=== PATIENT | male | born 1985 | race Caucasian/White ===

== ENCOUNTER 2019-11-11 15:36 | Outpatient (CLI) | payer OTHER, SELFPAY ==
--- NOTE | ~2019-11-11 | XR_ITS ---
EXAMINATION: XR chest 2V DATE: 11/11/2019 16:13 INDICATION: Lethargy. Fatigue. TECHNIQUE: Frontal and lateral views of the chest were obtained. COMPARISON: None. FINDINGS: Calcified bilateral lung nodules and calcified hilar and mediastinal lymph nodes are consis tent with old granulomatous disease. No pleural effusion or pneumothorax. The heart size is normal. IMPRESSION: 1. No acute cardiopulmonary disease. Reviewed, dictated and finalized at location A. [employer]
[2019-11-11 15:53] LABS: Add Urine Microscopic? NO; Appearance Urine Clear (Clear); Basophils Absolute Auto 0.04 K/mm3 (0.00-0.10); Basophils Percent Auto 0.4 % (0.0-1.0); Bilirubin Urine Negative (Negative); Blood Urine Negative (Negative); Color Urine Yellow (Yellow); Eosinophils Absolute Auto 0.14 K/mm3 (0.02-0.50); Eosinophils Percent Auto 1.3 % (1.0-6.0); Glucose Urine UA Negative (Negative); Hemoglobin 15.6 g/dL (14.0-18.0); Immature Granulocyte Absolute 0.04 K/mm3 (0.00-0.00); Immature Granulocyte Percent A 0.4 % (0.0-0.0); Ketones Urine Negative (Negative); Leukocyte Esterase Ur Negative (Negative); Lymphocytes Absolute Auto 2.67 K/mm3 (1.10-4.50); Mean Corpuscular HGB Conc 33.9 g/dL (32.0-36.0); Mean Corpuscular Hemoglobin 30.5 pg (27.0-31.0); Mean Corpuscular Volume 89.8 fL (78.0-102.0); Mean Platelet Volume 10.2 fl (8.7-11.0); Monocytes Absolute Auto 0.78 K/mm3 (0.10-0.90); Monocytes Percent Auto 7.3 % (2.0-11.0); Neutrophils Percent Auto 65.6 % (50.0-70.0); Nitrate Urine Negative (Negative); Platelet Count Result 225 K/mm3 (150-420); Protein Urine Negative (Negative); Red Blood Count 5.12 M/mm3 (4.70-6.10); Specific Grav Ur 1.025 (1.010-1.020); Urobilinogen Urine 0.2 mg/dL (0.2-1.0); White Blood Count 10.7 K/mm3 (4.8-10.8); pH Urine 5.5 (5.0-8.0)
[2019-11-11 17:35] LABS: Alanine Aminotransferase 32 U/L (16-63); Albumin Level 4.2 g/dL (3.4-5.0); Alkaline Phosphatase 68 U/L (46-116); Anion Gap 15.4 mmol/L (7-16); Aspartate Amino Transferase 19 U/L (15-37); Bilirubin,Total 0.2 mg/dL (0.00-1.00); Blood Urea Nitrogen 12 mg/dL (7-18); Calcium 8.8 mg/dL (8.5-10.1); Carbon Dioxide 27 mmol/L (21-32); Chloride 106 mmol/L (98-108); Cholesterol 166 mg/dL (0-200); Estimated Glomerular Filt Rate > 60; Free T3 3.38 pg/mL (2.18-3.98); Free T4 Free Thyroxine 0.89 ng/dL (0.76-1.46); Glucose 85 mg/dL (70-99); HDL Direct 36 mg/dL (40-60); LDL Cholesterol Calculated 66 mg/dL (<130); Osmolality Calculated 296 mOsm/kg (285-295); Potassium 4.4 mmol/L (3.5-5.1); Sodium 144 mmol/L (136-145); Total Protein 7.4 g/dL (6.4-8.2); Triglycerides 321 mg/dL (0-150)
[2019-11-11 18:30] LABS: CRP < 0.2 mg/dL (0.0-0.9)
[2019-11-15 04:02] LABS: Thyroglobulin 7.9 ng/mL (2.8-40.9); Thyroglobulin Antibodies <1 IU/mL (<=1); Thyroid Peroxidase Antibodies <1 IU/mL (<9)
== END 2019-11-11 15:37 | disposition home or self-care (01) ==
LOC: CHSLAB 15:41
PROVIDERS: PCP Internal Medicine; Visit Provider Internal Medicine
DX: Z00.00 Encounter for general adult medical examination without abnormal findings (principal); R53.83 Other fatigue
CPT/HCPCS: 36415; 71046; 80053; 80061; 81003; 84432; 84439; 84443; 84481; 85025; 86140; 86376; 86800

== ENCOUNTER 2021-02-12 16:31 | Emergency (ER) | payer OTHER, SELFPAY ==
--- NOTE | ~2021-02-12 | XR_ITS ---
EXAMINATION: XR lumbar spine 2-3V EXAM DATE: 02/12/2021 17:47 INDICATION: Low back pain, difficulty straightening up. Right curvature. TECHNIQUE: Lumber spine frontal, lateral, lateral L5-S1 projections for interpretation. There is no prior study for comparison. FINDINGS: There is mild lumbar facet arthropathy. There is mild anterior wedging of the T12 vertebra l body which is most likely chronic or congenital finding. Mild disc disease at T12-L1 and T11-12. Th e vertebral body and disc heights are otherwise well maintained. The vertebral bodies are aligned i n the AP dimension. There are no acute fractures identified. Sacrum, sacroiliac joints, sacral arcua te lines are intact. Paraspinal soft tissue is unremarkable. IMPRESSION: 1. Mild lumbar facet arthropathy. 2. Mild lower thoracic disc disease. Reviewed, dictated and finalized at location A.
[2021-02-12 16:46] VITALS: BP 122/90; PULSE 83; RESP 16; TEMP 37; O2SAT 97
--- NOTE | 2021-02-12 17:26 | ED.BACK ---
HPI - Back Pain/Injury General Chief Complaint: Back Pain/Injury Stated Complaint: back pain Time Seen by Provider: 02/12/21 17:26 Source: patient Mode of arrival: ambulatory Limitations: no limitations History of Present Illness HPI Narrative: 36-year-old man comes in today complaining of back pain that started yesterday while he was lifting some bags of concrete mix. Patient states that 4 years ago he had back pain problems and an MRI showed that he had multiple bulging lumbar discs. Patient states that he has intermittent back pain but his pain got much worse since yesterday. He has had no numbness, tingling, weakness, incontinence or perineal numbness states the pain radiates down his buttock on either side depending on his position. He denies IV drug use, prior back surgery, or recent trauma. MD elicited complaint: back pain Pertinent past history: prior back pain Onset (ago): day(s) (2) Timing: constant Severity: severe Quality: sharp Location: lumbar spine Radiation: buttocks Exacerbating factors: movement Relieving factors: other (position) Context: while lifting Treatments prior to arrival: NSAIDS Related Data Home Medications Medication Instructions Recorded Confirmed pantoprazole 40 mg PO DAILY 02/12/21 02/12/21 Allergies Allergy/AdvReac Type Severity Reaction Status Date / Time No Known Allergies Allergy Verified 02/12/21 16:46 Review of Systems Review of Systems: All systems reviewed & are unremarkable except as noted in HPI and below Constitutional: Constitutional: Denies chills and Denies fever(s) Eyes: Eyes: Denies change in vision and Denies photophobia Respiratory: Respiratory: Denies cough and Denies dyspnea Gastrointestinal: Gastrointestinal: Denies abdominal pain, Denies nausea and Denies vomiting Genitourinary: Genitourinary: Denies dysuria, Denies urinary frequency and Denies urinary incontinence Musculoskeletal: Musculoskeletal: Reports back pain, Denies arthralgias and Denies joint swelling Integumentary/Breasts: Skin/Breast: Denies pruritus, Denies erythema and Denies rash Neurologic: Denies vertigo, Denies dizziness and Denies syncope Hematologic/Lymphatic: Hematologic/Lymphatic: Denies easy bleeding and Denies easy bruising Allergic/Immunologic: Allergic/Immunologic: Denies lip swelling and Denies throat swelling PMF Past Medical History Medical History (Updated 02/12/21 @ 17:40 by Fred Briones MD) GERD (gastroesophageal reflux disease) Surgical History Surgical History History of carpal tunnel surgery Family History Family History (System 03/12/20 @ 10:43 by Mariana Shankar) Other Diabetes mellitus Family history of malignant neoplasm Social History Social History (Updated 02/12/21 @ 17:38 by Fred Briones MD) Smoking status: Never smoker Alcohol intake: current Substance use: never Living arrangements: with family Exam Const: General: healthy appearing and alert Orientation/consciousness: patient oriented x3 Limitations: no limitations Other: [id number] acute distress. Eyes: Conjunctivae: conjunctivae normal Pupils: Equal, round and reactive pupils present EOM: EOMs intact bilaterally Resp: Effort & Inspection: normal respiratory effort and not labored Auscultation: clear to auscultation bilaterally, no rales, no rhonchi and no wheezes Cardio: Rate: regular rate Rhythm: regular rhythm Heart sounds: no murmurs Skin: General skin exam: normal color, no jaundice and no pallor Rashes: no rashes Neuro: General: patient oriented x3, moves all extremities, no focal motor deficits and CN's II-XI intact bilaterally Speech: normal speech Gait exam (Neuro): Normal gait present Other: DTRs 2+ and symmetric at the patellar and calcaneal tendons. Extrem: General: normal to inspection and no clubbing, cyanosis or edema Psych: Appearance: grossly susannah
== END 2021-02-12 18:21 | disposition home or self-care (01) ==
PROVIDERS: Emergency Provider Emergency Medicine; PCP Internal Medicine
DX: M54.31 Sciatica, right side (principal)
CPT/HCPCS: 72100; 99283